=== PATIENT | female | born 1930 | race Asian ===

== ENCOUNTER 2018-10-13 11:42 | Day surgery (SDC) | payer MEDICARE ==
[~2018-10-13 11:42] MED LIST: IOPIDINE OS ONE; MYDRIACYL OS ONE; NEOFRIN OS ONE
[2018-10-13 14:01] VITALS: BP 131/75
== END 2018-10-13 11:43 | disposition home or self-care (01) ==
LOC: OR 11:42
PROVIDERS: ATTEND Specialist
DX: H26.492 Other secondary cataract, left eye (principal); E78.00 Pure hypercholesterolemia, unspecified; I10 Essential (primary) hypertension; F17.210 Nicotine dependence, cigarettes, uncomplicated; M19.90 Unspecified osteoarthritis, unspecified site; Z72.89 Other problems related to lifestyle; Z98.890 Other specified postprocedural states; Z79.899 Other long term (current) drug therapy; Z79.82 Long term (current) use of aspirin; Z98.41 Cataract extraction status, right eye; Z98.42 Cataract extraction status, left eye